=== PATIENT | male | born 1955 | race Caucasian/White ===

== ENCOUNTER 2018-03-10 19:01 | Emergency (ER) | payer BC ==
[~2018-03-10 19:01] MED LIST: HYDR-2768 PO; LOTR5CAP2 PO
[2018-03-10 19:14] VITALS: BP 143/75; PULSE 103; RESP 16; TEMP 100.3; O2SAT 95
[2018-03-10] MEDS ORDERED: HYDR25TA5 PO (19:28)
[2018-03-10] MEDS ORDERED: ROSU10 PO (19:28)
[2018-03-10] MEDS ORDERED: LOTR5CAP3 PO (19:28)
[2018-03-10] MEDS ORDERED: PERC5TAB12 PO (19:28)
--- NOTE | 2018-03-10 19:35 | PD ---
HPI Chief Complaint: Bleeding Time Seen by Provider: 19:31 Travel History International Travel<30 days: No Contact w/Intl Traveler<30days: No Traveled to known affect area: No History of Present Illness HPI Patient comes in for reevaluation, as he had rotator cuff surgery performed by Dr. Hoyos on Tuesday (approximately 3 days ago). Patient comes in complaining of oozing out of the wound, he has not been using his sling as provided because it was too small, and he has noted that his there is increased swelling to his left arm. Aggravated by movement, alleviated by laying still. Denies associated symptoms such as fever, foul-smelling drainage, chest pain, back pain, abdominal pain, nausea vomiting diarrhea, cough/runny nose/sore throat. No known drug allergy Past medical history significant for hypertension, hypercholesterolemia, PFSH Past Medical History Hypertension: Yes Social History Alcohol Use: Yes (WEEKLY- 6 PACK) Tobacco Use: Yes (1 PPD X 15 YEARS) Substance Use: No Allergies-Medications (Allergen,Severity, Reaction): Coded Allergies: No Known Allergies (Verified Allergy, Unknown, 03/10/18) Reported Meds & Prescriptions Reported Meds & Active Scripts Active Reported Percocet (Oxycodone-Acetaminophen) 5-325 mg Tab 1-2 Tab PO Q6H PRN Crestor (Rosuvastatin Calcium) 10 Mg Tab 10 Mg PO DAILY Hydrochlorothiazide 25 Mg Tab 25 Mg PO DAILY Lotrel (Amlodipine-Benazepril) 5-20 Mg Cap 1 Cap PO BID Review of Systems General / Constitutional: No: Fever Eyes: No: Visual changes HENT: No: Headaches Cardiovascular: No: Chest Pain or Discomfort Respiratory: No: Shortness of Breath Gastrointestinal: No: Abdominal Pain Genitourinary: No: Dysuria Musculoskeletal: Positive: Other (Drainage from wound) Skin: No Rash Neurologic: No: Weakness Psychiatric: No: Depression Endocrine: No: Polydipsia Hematologic/Lymphatic: No: Easy Bruising Physical Exam Narrative GENERAL: SKIN: Warm and dry. HEAD: Atraumatic. Normocephalic. EYES: Pupils equal and round. No scleral icterus. No injection or drainage. ENT: No nasal bleeding or discharge. Mucous membranes pink and moist. NECK: Trachea midline. No JVD. CARDIOVASCULAR: Regular rate and rhythm. RESPIRATORY: No accessory muscle use. Clear to auscultation. Breath sounds equal bilaterally. GASTROINTESTINAL: Abdomen soft, non-tender, nondistended. MUSCULOSKELETAL: Extremities without clubbing, cyanosis, or edema. No obvious deformities. Patient has surgical candy in place, very mild erythema about 3 cm around throughout wound. Some serosanguineous drainage but without any foul- smelling or purulent drainage. No warmth to touch, no induration, no streaks, patient has some edema to the hands that are noted distally from the shoulder surgery. NEUROLOGICAL: Awake and alert. No obvious cranial nerve deficits. Motor grossly within normal limits. Five out of 5 muscle strength in the arms and legs. Normal speech. PSYCHIATRIC: Appropriate mood and affect; insight and judgment normal. Data Data Last Documented VS Vital Signs Date Time Temp Pulse Resp B/P (MAP) Pulse Ox O2 Delivery O2 Flow Rate FiO2 03/10/18 21:35 84 14 135/77 (96) 97 Room Air 03/10/18 19:14 100.3 Orders Orders Us Arm Venous Doppler (03/10/18 19:35) Wound Care (03/10/18 19:35) Splint Or Brace Apply/Monitor (03/10/18 19:35) Clindamycin Inj (Cleocin Inj) (03/10/18 19:45) MDM Medical Decision Making Medical Screen Exam Complete: Yes Emergency Medical Condition: Yes Medical Record Reviewed: Yes Differential Diagnosis DVT versus cellulitis versus abscess versus lymphangitis Narrative Course Ultrasound revealed no DVT and only small amount of fluid measuring about 3.3 cm this is most likely the source of current drainage which is clinically serosanguineous and nonpurulent in nature. Patient tolerated his left sling placement Patient tolerated empiric IM clindamycin, will provide with approximately 5 days worth of Bactrim as empiric antibiotic treatment to avoid secondary infection Diagnosis Primary Impression: Status post left rotator cuff repair with serosanguineous drainage Additional Impression: SLING placement Patient Instructions: Acute Wound Care (GEN), General Instructions Scripts Sulfamethoxazole-Trimethoprim (Bactrim DS) 800-160 Mg Tab 1 TAB PO BID for Infection, #14 TAB 0 Refills Prov: Ruslan Matt MD 03/10/18 Disposition: 01 DISCHARGE HOME Condition: Stable Ruslan Matt MD March 10, 2018 19:35
[2018-03-10] MEDS ORDERED: CLINDAMYCIN PHOS 300 MG/2 ML VIAL IM ONE (19:45)
[2018-03-10] MEDS ORDERED: CLINDAMYCIN PHOS 600 MG/4 ML VIAL IM ONE (19:45)
[2018-03-10 21:35] VITALS: BP 135/77; PULSE 84; RESP 14; O2SAT 97
--- NOTE | 2018-03-10 21:50 | RADRPT ---
EXAM DATE/TIME: 03/10/2018 20:59 [facility] COMPARISON: No previous studies available for comparison. [facility], US ARM, LEFT, April 25, 2017 INDICATIONS : Left arm swelling. MEDICAL HISTORY : Hypercholesterolemia. Hypertension. SURGICAL HISTORY : Left shoulder joint replacement. ENCOUNTER: Initial ACUITY: 1 day PAIN SCORE: 4/10 LOCATION: Left arm. FINDINGS: There is spontaneous flow documented in the brachial, basilic, cephalic, axillary, and subclavian vei ns. The vessels are compressible and augmentation response is documented. No filling defects are se en. The flow is phasic with respiration. Direction of flow in the jugular vein is caudal. Small hypoechoic area involving the left shoulder in the region of recent surgery measuring 3.3 x 2.7 x 0.8 cm. CONCLUSION: 1. No DVT. 2. Small mildly complex fluid collection involving the area of prior surgery measuring 3.3 cm. Rommel Carrera Jr., MD on March 10, 2018 at 21:46 Board Certified Radiologist. This report was verified electronically.
[2018-03-10] MEDS ORDERED: BACT800T5 PO (21:57)
== END 2018-03-10 22:20 | disposition home or self-care (01) ==
LOC: PHED 19:01
DX: T81.89XA Other complications of procedures, not elsewhere classified, initial encounter (principal); Y83.8 Other surgical procedures as the cause of abnormal reaction of the patient, or of later complication, without mention of misadventure at the time of the procedure; R60.0 Localized edema; L53.9 Erythematous condition, unspecified; I10 Essential (primary) hypertension; E78.00 Pure hypercholesterolemia, unspecified; F17.200 Nicotine dependence, unspecified, uncomplicated; Z98.890 Other specified postprocedural states
CPT/HCPCS: 93971; 96372